=== PATIENT | female | born 1965 | race African-American/Black ===

== ENCOUNTER 2023-05-26 06:56 | Inpatient (IN) | payer MEDICAID ==
[~2023-05-26] VITALS: Ht 152.4 cm; Wt 54.9 kg
[2023-05-26] VITALS (12 sets, daily range): BP systolic 123–183; BP diastolic 64–95; PULSE 85–106; RESP 17–20; TEMP 96.9–98.1; O2SAT 92
[~2023-05-26 06:56] MED LIST: ASPI-1497 PO; CARV6.2548 PO; ESTRAGEN PO; OMEG-31 PO; SITA50TA3 PO; [UNRECOGNIZED DRUG - OTHER]; [UNRECOGNIZED DRUG - OTHER] PO
[2023-05-26] MEDS ORDERED: IPRATROPIUM BROMIDE (0.02%) 0.5MG/2.5ML NEB HHN STA (07:09)
[2023-05-26] MEDS ORDERED: ALBUTEROL (0.083%) 2.5MG/3ML NEB HHN STA (07:09)
[2023-05-26] MEDS ORDERED: METHYLPREDNISOLONE SOD SUCC 125MG/2ML (ACT-O-VIAL) IV STA (07:09)
[2023-05-26 07:58] LABS: BASOPHILS % 0.3 % (0.0-2.0); EOSINOPHILS % 2.7 % (0.0-5.0); HEMATOCRIT. 31.3 % (36.0-48.0); HEMOGLOBIN. 9.8 g/dL (12.0-16.0); MEAN CORPUSCULAR HEMOGLOBIN 28.2 pg (28.0-32.0); MEAN CORPUSCULAR HGB CONC 31.3 g/dL (31.0-37.0); MEAN CORPUSCULAR VOLUME 90.1 fL (81.0-99.0); MEAN PLATELET VOLUME 7.8 fl (7.4-10.4); MONOCYTES % 6.5 % (2.0-8.0); NEUTROPHILS % 80.5 % (40.0-76.0); PLATELET 160 x1000/uL (130-400); RED BLOOD CELL COUNT 3.47 mill/uL (4.2-5.4); RED CELL DISTRIBUTION WIDTH 20.8 % (11.6-14.6); WHITE BLOOD COUNT 11.3 x1000/uL (4.5-11.0)
[2023-05-26 08:18] LABS: CHLORIDE 106 mEq/L (98-107); INDEX HEMOLYSI 1 (1-3); INDEX ICTERIC 1 (1-4); INDEX LIPEMIC 1 (1-3); POTASSIUM 5.5 mEq/L (3.5-5.1); SODIUM 139 mEq/L (136-145)
[2023-05-26 08:27] LABS: ALANINE AMINOTRANSFERASE 31 IU/L (13-61); ALBUMIN 3.4 g/dL (3.4-5.0); ASPARTATE AMINOTRANSFERASE 30 IU/L (15-37); BILIRUBIN TOTAL 0.4 mg/dL (0.1-1.0); CALCIUM 7.8 mg/dL (8.5-10.1); CARBON DIOXIDE 26 mEq/L (21-32); GLUCOSE 157 mg/dL (70-105); NT PRO B-TYPE NATRIURETIC PEP 24275 pg/mL (5-125); PROTEIN TOTAL 7.6 g/dL (6.0-8.3); TROPONIN I HIGH SENSITIVITY 45 ng/L (<54); UREA NITROGEN BLOOD 73 mg/dL (7-21)
[2023-05-26 08:49] LABS: CREATININE 6.3 mg/dL (0.6-1.3)
[2023-05-26] MEDS ORDERED: INSULIN REGULAR (HUMULIN R) 300UNITS/3ML VIAL IV ONE (09:00)
[2023-05-26] MEDS ORDERED: SODIUM BICARBONATE 8.4% 1 MEQ/ML 50ML SYR IV ONE (09:00)
[2023-05-26] MEDS ORDERED: AZITHROMYCIN 500MG/250ML 250 ML IV ONE (09:00)
[2023-05-26] MEDS ORDERED: ALBUTEROL (0.083%) 2.5MG/3ML NEB HHN ONE (09:00)
[2023-05-26] MEDS ORDERED: DEXTROSE 50% WATER 50ML SYRINGE IV ONE (09:00)
[2023-05-26] MEDS ORDERED: CALCIUM CHLORIDE 1GM/10ML SYR IV ONE (09:00)
[2023-05-26] MEDS ORDERED: CEFTRIAXONE 1GM PREMIX 50 ML IV ONE (09:00)
[2023-05-26] MEDS ORDERED: ACETAMINOPHEN 325MG TABLET PO PRN (10:30)
[2023-05-26] MEDS ORDERED: ONDANSETRON HCL 4MG/2ML INJ IV PRN (10:30)
[2023-05-26] MEDS ORDERED: DOCUSATE SODIUM 100MG CAPSULE PO PRN (10:30)
[2023-05-26] MEDS ORDERED: MAGNESIUM/ALUMINUM HYDROXIDE/SIMETHICONE 30ML UDC PO PRN (10:30)
[2023-05-26] MEDS ORDERED: CLONIDINE 0.1MG TABLET PO PRN (10:30)
[2023-05-26] MEDS ORDERED: GUAIFENESIN 200MG/10ML SUGAR FREE UDC PO PRN (10:30)
[2023-05-26] MEDS ORDERED: IPRATROPIUM/ALBUTEROL 0.5-3(2.5)MG/3ML NEB HHN PRN (10:30)
[2023-05-26 10:31] LABS: HEPATITIS B SURFACE ANTIGEN NEGATIVE
[2023-05-26] MEDS ORDERED: DEXTROSE 50% WATER 50ML SYRINGE IV PRN (10:45)
[2023-05-26 10:59] LABS: HEPATITIS B CORE AB IGM NEGATIVE
[2023-05-26] MEDS ORDERED: CEFTRIAXONE 1GM PREMIX 50 ML IV NR (11:00)
[2023-05-26] MEDS ORDERED: AZITHROMYCIN 500MG/250ML 250 ML IV NR (11:00)
[2023-05-26] MEDS ORDERED: DEXTROSE 50% WATER 50ML SYRINGE IV NR (11:00)
[2023-05-26] MEDS ORDERED: SODIUM BICARBONATE 8.4% 1 MEQ/ML 50ML SYR IV NR (11:00)
[2023-05-26] MEDS ORDERED: INSULIN REGULAR (HUMULIN R) 300UNITS/3ML VIAL IV NR (11:00)
[2023-05-26] MEDS ORDERED: CALCIUM CHLORIDE 1GM/10ML SYR IV NR (11:00)
[2023-05-26 11:01] LABS: HEPATITIS A AB IGM NEGATIVE (NEGATIVE)
[2023-05-26 11:11] LABS: PHOSPHORUS 5.3 mg/dL (2.5-4.9)
[2023-05-26 11:37] LABS: INDEX HEMOLYSI 3 (1-3)
[2023-05-26 11:41] LABS: LACTIC ACID 2.8 mmol/L (0.4-2.0)
[2023-05-26] MEDS: CARVEDILOL 6.25 MG TABLET PO SCH ×2 (11:45→16:23)
[2023-05-26] MEDS ORDERED: METHYLPREDNISOLONE SOD SUCC 125MG/2ML (ACT-O-VIAL) IV NR (11:45)
[2023-05-26] MEDS: ASPIRIN 81MG EC TABLET PO SCH (11:45)
[2023-05-26 11:47] LABS: FOLIC ACID (FOLATE) SERUM >20 ng/mL ng/mL (>5.38); VITAMIN B12 SERUM 718 pg/mL (211-911)
[2023-05-26] MEDS: FAMOTIDINE 20MG/2ML VIAL IV SCH (12:00)
[2023-05-26] MEDS: ENOXAPARIN 30MG/0.3ML SYR SUBCUT SCH (12:00)
[2023-05-26 12:16] LABS: HEPATITIS C VIR.AB > 11.00 INDEXVAL (0.00-0.80)
[2023-05-26] MEDS: INSULIN LISPRO 100 UNITS/ML SUBCUT SCH ×3 (16:00→21:07)
[2023-05-26] MEDS: BLOOD SUGAR DIAGNOSTIC STRIP TEST SCH ×3 (16:00→21:06)
[2023-05-26] MEDS: ACETAMINOPHEN 325MG TABLET PO PRN (18:19)
[2023-05-26] MEDS ORDERED: INSULIN REGULAR (HUMULIN R) 300UNITS/3ML VIAL SUBCUT NR (23:13)
[2023-05-27] VITALS (13 sets, daily range): BP systolic 103–151; BP diastolic 49–83; PULSE 67–87; RESP 16–20; TEMP 96–98.8
[2023-05-27] MEDS: ACETAMINOPHEN 325MG TABLET PO PRN ×2 (03:06→21:49)
[2023-05-27] MEDS: BLOOD SUGAR DIAGNOSTIC STRIP TEST SCH ×2 (06:50→21:42)
[2023-05-27] MEDS: INSULIN LISPRO 100 UNITS/ML SUBCUT SCH ×3 (06:51→21:47)
[2023-05-27] MEDS ORDERED: KETOROLAC 15MG/ML VIAL IV PRN (09:30)
[2023-05-27] MEDS ORDERED: KETOROLAC 15MG/ML VIAL IV ONE (09:30)
[2023-05-27 10:43] LABS: BASOPHILS % 0.3 % (0.0-2.0); EOSINOPHILS % 1.4 % (0.0-5.0); LYMPHOCYTES % 21.1 % (20.0-50.0); MEAN CORPUSCULAR HEMOGLOBIN 27.9 pg (28.0-32.0); MEAN CORPUSCULAR HGB CONC 30.3 g/dL (31.0-37.0); MEAN CORPUSCULAR VOLUME 92.1 fL (81.0-99.0); MEAN PLATELET VOLUME 8.2 fl (7.4-10.4); MONOCYTES % 9.1 % (2.0-8.0); NEUTROPHILS % 68.1 % (40.0-76.0); PLATELET 136 x1000/uL (130-400); RED BLOOD CELL COUNT 4.28 mill/uL (4.2-5.4); RED CELL DISTRIBUTION WIDTH 22.5 % (11.6-14.6); WHITE BLOOD COUNT 6.4 x1000/uL (4.5-11.0)
[2023-05-27] MEDS: CARVEDILOL 6.25 MG TABLET PO SCH ×2 (10:51→20:00)
[2023-05-27] MEDS: ASPIRIN 81MG EC TABLET PO SCH (10:51)
[2023-05-27] MEDS ORDERED: CEFTRIAXONE 1,000 MG in DEXTROSE 5% WATER 50 ML IV SCH (11:00)
[2023-05-27] MEDS ORDERED: AZITHROMYCIN 500MG in DEXTROSE 5% WATER 250ML IV SCH (11:00)
[2023-05-27 11:08] LABS: CHLORIDE 101 mEq/L (98-107); INDEX HEMOLYSI 4 (1-3); INDEX ICTERIC 1 (1-4); INDEX LIPEMIC 1 (1-3); SODIUM 137 mEq/L (136-145)
[2023-05-27 11:22] LABS: ALANINE AMINOTRANSFERASE 27 IU/L (13-61); ALBUMIN 3.9 g/dL (3.4-5.0); ASPARTATE AMINOTRANSFERASE 32 IU/L (15-37); BILIRUBIN TOTAL 0.5 mg/dL (0.1-1.0); CALCIUM 8.1 mg/dL (8.5-10.1); CARBON DIOXIDE 22 mEq/L (21-32); CHOLESTEROL 149 mg/dL (<200); GLUCOSE 116 mg/dL (70-105); HDL CHOLESTEROL 103 mg/dL (40-59); LDL CHOLESTEROL 39 mg/dL (5-100); PHOSPHORUS 5.6 mg/dL (2.5-4.9); PROTEIN TOTAL 8.4 g/dL (6.0-8.3); T4 FREE 0.81 ng/dL (0.76-1.46); TRIGLYCERIDE 77 mg/dL (0-150); UREA NITROGEN BLOOD 60 mg/dL (7-21)
[2023-05-27 11:22] LABS: DIFFERENTIAL COMMENT 1; HEMOGLOBIN. 11.9 g/dL (12.0-16.0)
[2023-05-27 11:23] LABS: HEMATOCRIT. 39.4 % (36.0-48.0)
[2023-05-27 11:24] LABS: ADD RBC MORPHOLOGY YES
[2023-05-27 11:27] LABS: CREATININE 5.7 mg/dL (0.6-1.3)
[2023-05-27 12:04] LABS: LACTIC ACID 2.1 mmol/L (0.4-2.0)
[2023-05-27] MEDS: ENOXAPARIN 30MG/0.3ML SYR SUBCUT SCH (13:58)
[2023-05-27] MEDS ORDERED: DIPHENHYDRAMINE 25MG CAPSULE PO NR (14:10)
[2023-05-27] MEDS ORDERED: LEVETIRACETAM 500MG PREMIX 100 ML IV NR (18:00)
[2023-05-27 20:09] LABS: ANISOCYTOSIS 2+; PLATELET ESTIMATE NORMAL
[2023-05-27 21:04] LABS: POTASSIUM 4.1 mEq/L (3.5-5.1)
[2023-05-27 21:08] LABS: CREATININE 4.3 mg/dL (0.6-1.3)
[2023-05-28] VITALS: PULSE 74; RESP 17; TEMP 97.7
[2023-05-28] MEDS: BLOOD SUGAR DIAGNOSTIC STRIP TEST SCH ×4 (06:30→21:55)
[2023-05-28] MEDS: ACETAMINOPHEN 325MG TABLET PO PRN (06:32)
[2023-05-28] MEDS: INSULIN LISPRO 100 UNITS/ML SUBCUT SCH ×4 (07:40→21:00)
[2023-05-28 08:00] VITALS: BP 123/47; PULSE 70; RESP 18; TEMP 98.8
[2023-05-28] MEDS: LIDOCAINE 5% PATCH TOP SCH (08:48)
[2023-05-28] MEDS: ASPIRIN 81MG EC TABLET PO SCH (08:51)
[2023-05-28] MEDS: FAMOTIDINE 20MG/2ML VIAL IV SCH (11:35)
[2023-05-28 12:00] VITALS: BP 125/59; PULSE 76; RESP 18; TEMP 97.7
[2023-05-28] MEDS: DICLOFENAC SODIUM 1% GEL 50GM TOP SCH ×3 (12:38→21:59)
[2023-05-28] MEDS: ENOXAPARIN 30MG/0.3ML SYR SUBCUT SCH (12:39)
[2023-05-28 16:00] VITALS: BP 143/65; PULSE 79; RESP 18; TEMP 96.6
[2023-05-28 20:00] VITALS: BP 121/53; PULSE 77; RESP 17; TEMP 97.9
[2023-05-28] MEDS ORDERED: INSULIN GLARGINE 100 UNITS/ML SUBCUT SCH (22:00)
[2023-05-29] VITALS (11 sets, daily range): BP systolic 105–145; BP diastolic 53–84; PULSE 68–98; RESP 17–19; TEMP 97–99.2; O2SAT 99
[2023-05-29] MEDS: BLOOD SUGAR DIAGNOSTIC STRIP TEST SCH ×3 (06:37→16:17)
[2023-05-29] MEDS: INSULIN LISPRO 100 UNITS/ML SUBCUT SCH ×3 (06:37→17:40)
[2023-05-29] MEDS: DICLOFENAC SODIUM 1% GEL 50GM TOP SCH ×3 (09:00→16:16)
[2023-05-29] MEDS: LIDOCAINE 5% PATCH TOP SCH (09:00)
[2023-05-29] MEDS ORDERED: DIPHENHYDRAMINE 25MG CAPSULE PO NR (09:45)
[2023-05-29] MEDS: ASPIRIN 81MG EC TABLET PO SCH (10:46)
[2023-05-29 10:54] LABS: BASOPHILS % 0.3 % (0.0-2.0); EOSINOPHILS % 4.1 % (0.0-5.0); HEMATOCRIT 30.1 % (36.0-48.0); HEMATOCRIT. 30.8 % (36.0-48.0); HEMOGLOBIN 9.7 g/dL (12.0-16.0); HEMOGLOBIN. 9.8 g/dL (12.0-16.0); LYMPHOCYTES % 18.5 % (20.0-50.0); MEAN CORPUSCULAR HEMOGLOBIN 28.8 pg (28.0-32.0); MEAN CORPUSCULAR HGB CONC 31.9 g/dL (31.0-37.0); MEAN CORPUSCULAR HGB CONC 32.3 g/dL (31.0-37.0); MEAN CORPUSCULAR VOLUME 89.8 fL (81.0-99.0); MEAN CORPUSCULAR VOLUME 90.2 fL (81.0-99.0); MEAN PLATELET VOLUME 8.6 fl (7.4-10.4); MONOCYTES % 8.7 % (2.0-8.0); NEUTROPHILS % 68.4 % (40.0-76.0); PLATELET 117 x1000/uL (130-400); PLATELET 123 x1000/uL (130-400); RED BLOOD CELL COUNT 3.35 mill/uL (4.2-5.4); RED BLOOD CELL COUNT 3.41 mill/uL (4.2-5.4); RED CELL DISTRIBUTION WIDTH 21.1 % (11.6-14.6); RED CELL DISTRIBUTION WIDTH 21.4 % (11.6-14.6); WHITE BLOOD COUNT 4.6 x1000/uL (4.5-11.0)
[2023-05-29 11:44] LABS: POTASSIUM 4.1 mEq/L (3.5-5.1)
[2023-05-29 11:50] LABS: CALCIUM 7.3 mg/dL (8.5-10.1); CREATININE 4.7 mg/dL (0.6-1.3); PHOSPHORUS 3.4 mg/dL (2.5-4.9)
[2023-05-29] MEDS: ENOXAPARIN 30MG/0.3ML SYR SUBCUT SCH (13:18)
[2023-05-29] MEDS: ACETAMINOPHEN 325MG TABLET PO PRN (16:21)
== END 2023-05-29 18:05 | disposition home or self-care (01) | DRG 720 ==
LOC: ER 06:56 → 8WST 09:26 → EDBEDREQTM 09:48 → EDBEDREQ 09:48
PROVIDERS: ADMIT Internal Medicine; ATTEND Internal Medicine
PROC: 5A1D70Z Performance of Urinary Filtration, Intermittent, Less than 6 Hours Per Day (ICD-10-PCS; principal; 2023-05-26)
PROC: 5A1D70Z Performance of Urinary Filtration, Intermittent, Less than 6 Hours Per Day (ICD-10-PCS; 2023-05-27)
PROC: 5A1D70Z Performance of Urinary Filtration, Intermittent, Less than 6 Hours Per Day (ICD-10-PCS; 2023-05-29)
DX: A41.9 Sepsis, unspecified organism (principal); J96.01 Acute respiratory failure with hypoxia; I12.0 Hypertensive chronic kidney disease with stage 5 chronic kidney disease or end stage renal disease; D64.9 Anemia, unspecified; B18.2 Chronic viral hepatitis C; E11.22 Type 2 diabetes mellitus with diabetic chronic kidney disease; N18.6 End stage renal disease; F03.90 Unspecified dementia, unspecified severity, without behavioral disturbance, psychotic disturbance, mood disturbance, and anxiety; E11.65 Type 2 diabetes mellitus with hyperglycemia; E87.5 Hyperkalemia; F41.9 Anxiety disorder, unspecified; E87.6 Hypokalemia; R56.9 Unspecified convulsions; G47.30 Sleep apnea, unspecified; Z20.822 Contact with and (suspected) exposure to COVID-19; M48.061 Spinal stenosis, lumbar region without neurogenic claudication; E87.70 Fluid overload, unspecified; J44.9 Chronic obstructive pulmonary disease, unspecified; G89.29 Other chronic pain; M17.12 Unilateral primary osteoarthritis, left knee; Z99.2 Dependence on renal dialysis; Z88.2 Allergy status to sulfonamides; Z79.899 Other long term (current) drug therapy; Z79.82 Long term (current) use of aspirin; Z85.3 Personal history of malignant neoplasm of breast; Z83.3 Family history of diabetes mellitus; Z82.49 Family history of ischemic heart disease and other diseases of the circulatory system; Z79.84 Long term (current) use of oral hypoglycemic drugs; Z79.4 Long term (current) use of insulin
CPT/HCPCS: 36415; 71045; 72070; 72110; 73562; 76700; 80048; 80053; 80061; 82607; 82746; 82962; 83036; 83540; 83550; 83605; 83735; 83880; 84100; 84145; 84439; 84443; 84484; 85025; 85027; 86705; 86709; 86803; 87340; 87426; 87804; 90935; 93005; 93306; 93970; 94644; 97162; 97166; 99291; C9803; J0456; J0696; J1650; J1815; J1953; J2930; J3490; J7060; Q0163

== ENCOUNTER 2023-11-12 19:23 | Inpatient (IN) | payer MEDICAID, OTHER ==
[~2023-11-12] VITALS: Ht 157.5 cm; Wt 55.8 kg
[~2023-11-12 19:23] MED LIST changes: -CARV6.2548 PO; -ESTRAGEN PO
[2023-11-12 19:27] VITALS: O2SAT 100
[2023-11-13 00:29] LABS: BASOPHILS % 0.4 % (0.0-2.0); EOSINOPHILS % 0.9 % (0.0-5.0); HEMATOCRIT. 21.9 % (36.0-48.0); HEMOGLOBIN. 7.3 g/dL (12.0-16.0); LYMPHOCYTES % 11.9 % (20.0-50.0); MEAN CORPUSCULAR HEMOGLOBIN 30.4 pg (28.0-32.0); MEAN CORPUSCULAR HGB CONC 33.4 g/dL (31.0-37.0); MEAN CORPUSCULAR VOLUME 91.2 fL (81.0-99.0); MEAN PLATELET VOLUME 8.4 fl (7.4-10.4); MONOCYTES % 6.2 % (2.0-8.0); NEUTROPHILS % 80.6 % (40.0-76.0); PLATELET 93 x1000/uL (130-400); RED CELL DISTRIBUTION WIDTH 15.3 % (11.6-14.6); WHITE BLOOD COUNT 7.4 x1000/uL (4.5-11.0)
[2023-11-13 00:37] LABS: PROTHROMBIN TIME 11.1 sec (9.6-11.0)
[2023-11-13 00:42] LABS: AMMONIA < 17 uMol/L (<32)
[2023-11-13 00:46] LABS: ALANINE AMINOTRANSFERASE 42 IU/L (10-49); ASPARTATE AMINOTRANSFERASE 52 IU/L (<34); BILIRUBIN TOTAL < 0.2 mg/dL (0.1-1.0); CARBON DIOXIDE 29 mEq/L (21-32); CHLORIDE 96 mEq/L (98-107); CREATININE 4.6 mg/dL (0.6-1.0); GLUCOSE 237 mg/dL (70-105); POTASSIUM 4.1 mEq/L (3.5-5.1); PROTEIN TOTAL 6.8 g/dL (6.0-8.3); SODIUM 136 mEq/L (136-145); THYROID STIMULATING HORMONE 4.01 uIU/mL (0.55-4.78); UREA NITROGEN BLOOD 48 mg/dL (9-23)
[2023-11-13 00:51] LABS: ETHANOL BLOOD < 10 mg/dL (<10)
[2023-11-13 04:35] VITALS: BP 129/59; PULSE 68; PULSE 69; RESP 18; TEMP 97.9
[2023-11-13] MEDS ORDERED: DEXTROSE 50% WATER 50ML SYRINGE IV PRN (05:30)
[2023-11-13] MEDS: INSULIN LISPRO 100 UNITS/ML SUBCUT SCH (06:07)
[2023-11-13] MEDS: HYDROCODONE/ACETAMINOPHEN 5/325MG TABLET PO PRN (06:07)
[2023-11-13] MEDS: DIPHENHYDRAMINE 50MG CAPSULE PO PRN (06:14)
[2023-11-13 06:57] LABS: BASOPHILS % 0.3 % (0.0-2.0); EOSINOPHILS % 1.8 % (0.0-5.0); LYMPHOCYTES % 20.1 % (20.0-50.0); MEAN CORPUSCULAR HEMOGLOBIN 29.2 pg (28.0-32.0); MEAN CORPUSCULAR HGB CONC 32.7 g/dL (31.0-37.0); MEAN CORPUSCULAR VOLUME 89.2 fL (81.0-99.0); MONOCYTES % 9.5 % (2.0-8.0); NEUTROPHILS % 68.3 % (40.0-76.0); PLATELET 94 x1000/uL (130-400); RED CELL DISTRIBUTION WIDTH 15.6 % (11.6-14.6); WHITE BLOOD COUNT 5.7 x1000/uL (4.5-11.0)
[2023-11-13 07:40] LABS: ALANINE AMINOTRANSFERASE 38 IU/L (10-49); ALBUMIN 3.5 g/dL (3.2-4.8); ASPARTATE AMINOTRANSFERASE 44 IU/L (<34); BILIRUBIN TOTAL < 0.2 mg/dL (0.1-1.0); CALCIUM 6.6 mg/dL (8.7-10.4); CARBON DIOXIDE 30 mEq/L (21-32); CHLORIDE 97 mEq/L (98-107); CHOLESTEROL 129 mg/dL (<200); CREATININE 4.9 mg/dL (0.6-1.0); GLUCOSE 135 mg/dL (70-105); HDL CHOLESTEROL 36 mg/dL (>65); LDL CHOLESTEROL 71 mg/dL (5-100); POTASSIUM 3.9 mEq/L (3.5-5.1); PROTEIN TOTAL 5.7 g/dL (6.0-8.3); SODIUM 136 mEq/L (136-145); TRIGLYCERIDE 75 mg/dL (0-150); UREA NITROGEN BLOOD 51 mg/dL (9-23)
[2023-11-13 07:50] LABS: HEMATOCRIT. 21.4 % (36.0-48.0)
[2023-11-13 08:00] VITALS: BP 121/56; PULSE 62; RESP 17; TEMP 97
[2023-11-13] MEDS: ASPIRIN 81MG TABLET PO SCH (08:53)
[2023-11-13] MEDS: AMLODIPINE 10MG TABLET PO SCH (08:54)
[2023-11-13] MEDS: BLOOD SUGAR DIAGNOSTIC STRIP TEST SCH (09:05)
[2023-11-13 12:00] VITALS: BP 116/55; PULSE 65; RESP 18; TEMP 97.4
[2023-11-13] MEDS ORDERED: NALOXONE HCL 0.4MG/ML VIAL IV PRN (14:00)
[2023-11-13 16:00] VITALS: BP 116/60; PULSE 76; RESP 18; TEMP 97.2
[2023-11-13 18:07] LABS: HEPATITIS A AB IGM NEGATIVE (Negative); HEPATITIS B CORE AB IGM NEGATIVE (Negative); HEPATITIS B SURFACE ANTIGEN NEGATIVE (Negative); HEPATITIS C AB REACTIVE (Pos) (Negative)
[2023-11-13 20:00] VITALS: BP 113/46; PULSE 65; RESP 20; TEMP 97.5
[2023-11-13] MEDS ORDERED: EPOETIN ALFA 4000UNITS/ML VIAL SUBCUT NR (21:00)
[2023-11-13] MEDS: ATORVASTATIN CALCIUM 40MG TABLET PO SCH (21:05)
[2023-11-14] VITALS (16 sets, daily range): BP systolic 108–144; BP diastolic 42–69; PULSE 62–73; RESP 16–19; TEMP 97.1–98.2
[2023-11-14] MEDS ORDERED: LEVE1000 PO (10:42)
[2023-11-14] MEDS ORDERED: PHEN100C4 MT (10:42)
[2023-11-14 12:01] LABS: BASOPHILS % 0.4 % (0.0-2.0); EOSINOPHILS % 3.4 % (0.0-5.0); HEMOGLOBIN. 7.1 g/dL (12.0-16.0); LYMPHOCYTES % 21.7 % (20.0-50.0); MEAN CORPUSCULAR HEMOGLOBIN 29.5 pg (28.0-32.0); MEAN CORPUSCULAR HGB CONC 32.2 g/dL (31.0-37.0); MEAN CORPUSCULAR VOLUME 91.7 fL (81.0-99.0); MEAN PLATELET VOLUME 9.1 fl (7.4-10.4); MONOCYTES % 9.8 % (2.0-8.0); NEUTROPHILS % 64.7 % (40.0-76.0); PLATELET 106 x1000/uL (130-400); RED CELL DISTRIBUTION WIDTH 15.9 % (11.6-14.6)
[2023-11-14 12:13] LABS: POTASSIUM 5.3 mEq/L (3.5-5.1)
[2023-11-14 12:34] LABS: CREATININE 7.2 mg/dL (0.6-1.0)
[2023-11-14 12:36] LABS: CALCIUM 5.9 mg/dL (8.7-10.4)
[2023-11-14] MEDS ORDERED: SITA25TA3 PO (12:37)
[2023-11-14] MEDS ORDERED: PHEN100C12 PO (12:37)
[2023-11-14] MEDS ORDERED: PANT40TA51 PO (12:37)
[2023-11-14] MEDS ORDERED: OLAN5TAB74 PO (12:37)
[2023-11-14] MEDS ORDERED: DIPH-1205 PO (12:37)
[2023-11-14] MEDS ORDERED: [UNRECOGNIZED DRUG - CODE] PO (12:44)
[2023-11-14] MEDS ORDERED: FOLI-43 PO (12:44)
[2023-11-14] MEDS ORDERED: ASPI-1406 PO (12:46)
[2023-11-14] MEDS ORDERED: KEPPSOL GT (12:48)
[2023-11-14] MEDS ORDERED: PHENYTOIN SODIUM EXTENDED 100MG CAPSULE PO SCH (14:00)
[2023-11-14] MEDS: GUAIFENESIN-DM 200MG-20MG/10ML UDC PO PRN (17:20)
[2023-11-14] MEDS: PHENYTOIN 100 MG/4 ML UDC PO SCH (17:20)
[2023-11-14] MEDS: LEVETIRACETAM 500MG/5ML CUP PO SCH (22:05)
[2023-11-14] MEDS: EPOETIN ALFA 4000UNITS/ML VIAL SUBCUT SCH (22:05)
[2023-11-15] VITALS: BP 141/59; PULSE 70; RESP 18; TEMP 97.1
[2023-11-15 04:00] VITALS: BP 122/51; PULSE 65; TEMP 97.3
[2023-11-15 08:00] VITALS: BP 119/53; PULSE 66; RESP 20; TEMP 97.9
[2023-11-15 10:07] VITALS: BP 119/53; PULSE 66; TEMP 97.9
[2023-11-15 12:00] VITALS: BP 118/52; PULSE 20; RESP 20; TEMP 97.9
[2023-11-15 12:57] VITALS: BP 119/53; PULSE 66; RESP 20
== END 2023-11-15 13:20 | DRG 52 ==
LOC: ER 19:23 → 4WST 11-13 00:03
PROVIDERS: ADMIT Internal Medicine; ATTEND Internal Medicine
PROC: 30233N1 Transfusion of Nonautologous Red Blood Cells into Peripheral Vein, Percutaneous Approach (ICD-10-PCS; principal; 2023-11-14)
PROC: 5A1D70Z Performance of Urinary Filtration, Intermittent, Less than 6 Hours Per Day (ICD-10-PCS; 2023-11-14)
DX: G93.41 Metabolic encephalopathy (principal); I12.0 Hypertensive chronic kidney disease with stage 5 chronic kidney disease or end stage renal disease; E11.22 Type 2 diabetes mellitus with diabetic chronic kidney disease; D64.9 Anemia, unspecified; J44.9 Chronic obstructive pulmonary disease, unspecified; Z79.82 Long term (current) use of aspirin; G40.909 Epilepsy, unspecified, not intractable, without status epilepticus; N18.6 End stage renal disease; Z88.2 Allergy status to sulfonamides; Z99.2 Dependence on renal dialysis; Z79.899 Other long term (current) drug therapy
CPT/HCPCS: 36415; 71045; 80048; 80053; 80061; 80185; 80320; 82140; 82962; 83036; 84443; 85025; 86705; 86709; 86850; 86900; 86920; 87340; 90935; 97162; 97530; 99285; J0885; P9016; Q0163; G0480

== ENCOUNTER 2024-03-03 14:54 | Inpatient (IN) | payer MEDICAID, OTHER ==
[~2024-03-03] VITALS: Ht 154.9 cm; Wt 60.3 kg
[~2024-03-03 14:54] MED LIST changes: +ASPI-1406 PO; -ASPI-1497 PO; +DIPH-1205 PO; +FOLI-43 PO; +KEPPSOL GT; +OLAN5TAB74 PO; -OMEG-31 PO; +PANT40TA51 PO; +PHEN100C4 MT; +SITA25TA3 PO; -SITA50TA3 PO; +[UNRECOGNIZED DRUG - CODE] PO; -[UNRECOGNIZED DRUG - OTHER]; -[UNRECOGNIZED DRUG - OTHER] PO
[2024-03-03 14:57] VITALS: O2SAT 95
[2024-03-03] MEDS ORDERED: CALCIUM GLUCONATE 1GM PREMIX 50 ML IV ONE (15:00)
[2024-03-03] MEDS: CALCIUM GLUCONATE 1GM PREMIX 50 ML IV NR (18:21)
[2024-03-03 18:25] LABS: BASOPHILS % 1.3 % (0.0-2.0); HEMATOCRIT. 33.3 % (36.0-48.0); HEMOGLOBIN. 10.6 g/dL (12.0-16.0); LYMPHOCYTES % 20.3 % (20.0-50.0); MEAN CORPUSCULAR HEMOGLOBIN 30.6 pg (28.0-32.0); MEAN CORPUSCULAR HGB CONC 31.9 g/dL (31.0-37.0); MEAN CORPUSCULAR VOLUME 95.9 fL (81.0-99.0); MEAN PLATELET VOLUME 8.5 fl (7.4-10.4); MONOCYTES % 11.2 % (2.0-8.0); NEUTROPHILS % 63.2 % (40.0-76.0); PLATELET 231 x1000/uL (130-400); RED BLOOD CELL COUNT 3.47 mill/uL (4.2-5.4); RED CELL DISTRIBUTION WIDTH 18.8 % (11.6-14.6); WHITE BLOOD COUNT 6.8 x1000/uL (4.5-11.0)
[2024-03-03 18:32] LABS: CHLORIDE 97 mEq/L (98-107); SODIUM 134 mEq/L (136-145)
[2024-03-03 18:33] LABS: CALCIUM 8.5 mg/dL (8.7-10.4); CARBON DIOXIDE 27 mEq/L (21-32)
[2024-03-03 18:38] LABS: GLUCOSE 90 mg/dL (70-105); UREA NITROGEN BLOOD 50 mg/dL (9-23)
[2024-03-03 18:39] LABS: TROPONIN I HIGH SENSITIVITY 16 ng/L (3.0-34)
[2024-03-03 18:40] LABS: ALANINE AMINOTRANSFERASE 9 IU/L (10-49); ALBUMIN 4.1 g/dL (3.2-4.8); ASPARTATE AMINOTRANSFERASE 20 IU/L (<34); BILIRUBIN TOTAL < 0.2 mg/dL (0.1-1.0); PROTEIN TOTAL 6.9 g/dL (6.0-8.3)
[2024-03-03 18:41] LABS: BILIRUBIN DIRECT < 0.1 mg/dL (<=3.0)
[2024-03-03 18:44] LABS: POTASSIUM 6.5 mEq/L (3.5-5.1)
[2024-03-03 18:45] LABS: CREATININE 6.3 mg/dL (0.6-1.0)
[2024-03-03] MEDS: MORPHINE SULFATE 2 MG/ML INJ (NOT FOR IM USE) IV ONE (18:50)
[2024-03-03] MEDS ORDERED: FUROSEMIDE 100MG/10ML VIAL IV STA (18:59)
[2024-03-03] MEDS ORDERED: ALBUTEROL (0.083%) 2.5MG/3ML NEB HHN ONE (19:00)
[2024-03-03] MEDS: SODIUM BICARBONATE 8.4% 1 MEQ/ML 50ML SYR IV ONE (19:44)
[2024-03-03] MEDS: DEXTROSE 50% WATER 50ML SYRINGE IV NR (19:44)
[2024-03-03] MEDS: CALCIUM CHLORIDE 1GM/10ML SYR IV ONE (19:44)
[2024-03-03] MEDS: FUROSEMIDE 40MG/4ML VIAL IV NR (19:45)
[2024-03-03] MEDS: SODIUM POLYSTYRENE SULFONATE 15 G/60 ML BOT PO ONE (19:45)
[2024-03-03] MEDS: DEXTROSE 50% WATER 50ML SYRINGE IV ONE (19:45)
[2024-03-03] MEDS: INSULIN REGULAR (HUMULIN R) 1000UNITS/10ML VIAL IV ONE (19:45)
[2024-03-03 21:30] VITALS: BP 141/66; PULSE 98; RESP 20; TEMP 96.3
[2024-03-03 23:05] VITALS: BP 141/66; PULSE 98; RESP 20; TEMP 97.3
[2024-03-03] MEDS ORDERED: DEXTROSE 50% WATER 50ML SYRINGE IV PRN (23:45)
[2024-03-04] VITALS (13 sets, daily range): BP systolic 134–166; BP diastolic 54–80; PULSE 69–82; RESP 18–21; TEMP 93.3–98
[2024-03-04] MEDS: ACETAMINOPHEN 325MG TABLET PO PRN (04:47)
[2024-03-04] MEDS: CLONIDINE 0.1MG TABLET PO PRN (06:21)
[2024-03-04] MEDS: BLOOD SUGAR DIAGNOSTIC STRIP TEST SCH (06:56)
[2024-03-04] MEDS: PANTOPRAZOLE 40MG DR TABLET PO SCH (07:15)
[2024-03-04] MEDS: INSULIN LISPRO 100 UNITS/ML SUBCUT SCH (07:17)
[2024-03-04] MEDS: ASPIRIN 81MG EC TABLET PO SCH (10:26)
[2024-03-04] MEDS: PHENYTOIN SODIUM EXTENDED 100MG CAPSULE PO SCH (10:26)
[2024-03-04] MEDS: LEVETIRACETAM 500MG TABLET PO SCH (10:27)
[2024-03-04] MEDS: FOLIC ACID 1MG TABLET PO SCH (10:27)
[2024-03-04 14:20] LABS: POTASSIUM 5.9 mEq/L (3.5-5.1)
[2024-03-04 14:44] LABS: HEPATITIS B SURFACE ANTIGEN NEGATIVE (Negative)
[2024-03-04 14:55] LABS: CREATININE 7.1 mg/dL (0.6-1.0)
[2024-03-04 15:04] LABS: HEPATITIS A AB IGM NEGATIVE (Negative)
[2024-03-04 15:05] LABS: HEPATITIS B CORE AB IGM NEGATIVE (Negative); HEPATITIS C AB REACTIVE (Pos) (Negative)
[2024-03-04 17:04] LABS: BASOPHILS % 0.9 % (0.0-2.0); EOSINOPHILS % 3.3 % (0.0-5.0); HEMATOCRIT. 33.2 % (36.0-48.0); HEMOGLOBIN. 10.5 g/dL (12.0-16.0); LYMPHOCYTES % 10.2 % (20.0-50.0); MEAN CORPUSCULAR HEMOGLOBIN 30.5 pg (28.0-32.0); MEAN CORPUSCULAR HGB CONC 31.7 g/dL (31.0-37.0); MEAN CORPUSCULAR VOLUME 96.1 fL (81.0-99.0); MONOCYTES % 7.1 % (2.0-8.0); NEUTROPHILS % 78.5 % (40.0-76.0); PLATELET 206 x1000/uL (130-400); RED BLOOD CELL COUNT 3.45 mill/uL (4.2-5.4); RED CELL DISTRIBUTION WIDTH 18.9 % (11.6-14.6); WHITE BLOOD COUNT 6.3 x1000/uL (4.5-11.0)
[2024-03-04 17:14] LABS: INR 0.9; PROTHROMBIN TIME 10.5 sec (9.6-11.0)
[2024-03-04] MEDS: SUCRALFATE 1G TABLET PO SCH (18:04)
[2024-03-04] MEDS: OLANZAPINE 5MG TABLET PO SCH (20:25)
[2024-03-05 00:52] VITALS: BP 135/52; PULSE 77; RESP 18; TEMP 97.4
[2024-03-05 08:00] VITALS: BP 171/66; PULSE 74; RESP 20; TEMP 97.6
[2024-03-05 10:23] LABS: BASOPHILS % 1.2 % (0.0-2.0); DIFFERENTIAL COMMENT 0; EOSINOPHILS % 6.1 % (0.0-5.0); HEMATOCRIT. 36.2 % (36.0-48.0); HEMOGLOBIN. 10.9 g/dL (12.0-16.0); LYMPHOCYTES % 25.1 % (20.0-50.0); MEAN CORPUSCULAR HEMOGLOBIN 30.1 pg (28.0-32.0); MEAN CORPUSCULAR HGB CONC 30.1 g/dL (31.0-37.0); MEAN CORPUSCULAR VOLUME 99.8 fL (81.0-99.0); MEAN PLATELET VOLUME 7.5 fl (7.4-10.4); NEUTROPHILS % 55.6 % (40.0-76.0); PLATELET 79 x1000/uL (130-400); RED BLOOD CELL COUNT 3.63 mill/uL (4.2-5.4); RED CELL DISTRIBUTION WIDTH 19.6 % (11.6-14.6); WHITE BLOOD COUNT 4.5 x1000/uL (4.5-11.0)
[2024-03-05 10:31] LABS: POTASSIUM 5.2 mEq/L (3.5-5.1)
[2024-03-05 10:32] LABS: CALCIUM 8.2 mg/dL (8.7-10.4)
[2024-03-05 10:40] LABS: CREATININE 6.2 mg/dL (0.6-1.0)
[2024-03-05 12:00] VITALS: BP 155/72; PULSE 72; RESP 18; TEMP 98.6
[2024-03-05] MEDS: DOCUSATE SODIUM 100MG CAPSULE PO SCH (12:01)
[2024-03-05] MEDS: POLYETHYLENE GLYCOL 3350 (17GM) 1 DOSE PACK PO SCH (12:02)
[2024-03-05] MEDS: MAGNESIUM/ALUMINUM HYDROXIDE/SIMETHICONE 30ML UDC PO NR (14:26)
[2024-03-05 20:00] VITALS: BP 161/67; PULSE 67; RESP 18; TEMP 97.9
[2024-03-06] VITALS (7 sets, daily range): BP systolic 135–158; BP diastolic 58–86; PULSE 68–79; RESP 18–20; TEMP 97.4–98.1
== END 2024-03-06 16:55 | DRG 243 ==
LOC: ER 14:54 → EDBEDREQ 19:57 → EDBEDREQTM 19:57 → 8WST 21:37
PROVIDERS: ADMIT Internal Medicine; ATTEND Internal Medicine
PROC: 5A1D70Z Performance of Urinary Filtration, Intermittent, Less than 6 Hours Per Day (ICD-10-PCS; principal; 2024-03-04)
PROC: 5A1D70Z Performance of Urinary Filtration, Intermittent, Less than 6 Hours Per Day (ICD-10-PCS; 2024-03-06)
DX: K21.9 Gastro-esophageal reflux disease without esophagitis (principal); I12.0 Hypertensive chronic kidney disease with stage 5 chronic kidney disease or end stage renal disease; E11.22 Type 2 diabetes mellitus with diabetic chronic kidney disease; E87.5 Hyperkalemia; D64.9 Anemia, unspecified; B19.20 Unspecified viral hepatitis C without hepatic coma; G40.909 Epilepsy, unspecified, not intractable, without status epilepticus; N18.6 End stage renal disease; K76.9 Liver disease, unspecified; Z79.82 Long term (current) use of aspirin; Z86.73 Personal history of transient ischemic attack (TIA), and cerebral infarction without residual deficits; Z88.2 Allergy status to sulfonamides; Z90.49 Acquired absence of other specified parts of digestive tract; Z99.2 Dependence on renal dialysis; Z79.899 Other long term (current) drug therapy
CPT/HCPCS: 36415; 71045; 74176; 76700; 80048; 80076; 82962; 83036; 84484; 85025; 86705; 86709; 87340; 90935; 93005; 99285; C1893; J0610; J1815; J1940; J2270; J3490